=== PATIENT | male | born 1990 | race Caucasian/White ===

== ENCOUNTER 2017-04-27 01:25 | Emergency (ER) | payer OTHER ==
[2017-04-27] MEDS ORDERED: Thiamine 200 MG/2 ML MDV IVPUSH ONE (02:01)
[2017-04-27] MEDS ORDERED: Sodium Chloride 0.9% 2,000 ML IV ONE (02:01)
[2017-04-27] MEDS ORDERED: LORazepam 2 MG/ML MDV IVPUSH ONE (02:01)
[2017-04-27 02:09] LABS: CHLORIDE,CL 106 mmol/L (98-110); SODIUM,NA 142 mmol/L (136-146)
[2017-04-27] MEDS ORDERED: Iopamidol 755 MG/ML 500 ML Multipack Bottle IVPUSH STA (02:19)
[2017-04-27] MEDS ORDERED: Diphtheria,Pertussis(Acell),Tetanus Vaccine 0.5 ML Syringe IM ONE (02:21)
[2017-04-27] MEDS ORDERED: ceFAZolin 2 GM in Premix Bag 1 BAG IV ONE (02:21)
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
[2017-04-27] MEDS ORDERED: Sodium Chloride 0.9% 1,000 ML IV ONE (02:28)
[2017-04-27 02:37] LABS: ACETAMINOPHEN < 0.0 ug/mL
[2017-04-27] MEDS ORDERED: Sodium Chloride 0.9% 1,000 ML IV SCH (02:45)
[2017-04-27] MEDS ORDERED: Levofloxacin/Dextrose 5%-Water 750 MG in Premix Bag 1 BAG IV ONE (03:11)
[2017-04-27] MEDS ORDERED: Clindamycin Phosphate in D5W 900 MG in Premix Bag 1 BAG IV ONE ×2 (03:50)
[2017-04-27 04:54] VITALS: BP 115/78
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
== END 2017-04-27 04:13 ==
LOC: MW.ED 01:25
DX: S09.90XA Unspecified injury of head, initial encounter (principal); S01.81XA Laceration without foreign body of other part of head, initial encounter; F10.129 Alcohol abuse with intoxication, unspecified; Y90.8 Blood alcohol level of 240 mg/100 ml or more; V89.2XXA Person injured in unspecified motor-vehicle accident, traffic, initial encounter; Y92.410 Unspecified street and highway as the place of occurrence of the external cause; Z23 Encounter for immunization
CPT/HCPCS: 70450; 70486; 71010; 72125; 72170; 74177; 80053; 80305; 81001; 85025; 86850; 86900; 86901; 90471; 90715; 93005; 96361; 96365; 96367; 96375; 99285; G0480; J0690; J1956; J2060; J3411; J7040; Q9967; 99284; G0390; J7050